=== PATIENT | male | born 1960 | race Caucasian/White ===

== ENCOUNTER 2023-11-17 21:03 | Emergency (ER) | payer BC, SELFPAY ==
--- NOTE | ~2023-11-17 | CT_ITS ---
EXAMINATION: CT abdomen pelvis w con DATE: 11/17/2023 23:07 INDICATION: epigastric abd pain, nausea TECHNIQUE: Computed tomography (CT) of the abdomen and pelvis was performed with 100 mL Omnipaque-350 intravenous contrast. Automated exposure control and iterative reconstruction technique were employe d. The dose-length product was 593.68 mGy-cm. COMPARISON: None. FINDINGS: Lower thorax: 6 mm right lower lobe pulmonary nodule. Liver: Mild hepatomegaly. Biliary/Gallbladder: The gallbladder is moderately contracted. No bile duct dilation. Pancreas: No mass or duct dilation. Spleen: Normal. Adrenals:No mass. Kidneys: No suspicious mass, obstructing stone, or hydronephrosis. Subcentimeter bilateral hypodensit ies, too small to characterize but most likely represent cysts. GI tract: Mild distal esophageal and gastric wall edema. No small or large bowel dilation. Normal patrick endix. Diverticulosis without diverticulitis. Mesentery/Peritoneum: No ascites, mass, or free air. Retroperitoneum: No mass. Atherosclerotic abdominal aortic and/or arterial calcifications. Pelvis: Pelvic organs are within normal limits. Soft Tissues: Soft tissues and body wall unremarkable. Bones: No acute osseous finding. IMPRESSION: 6 mm right lower lobe pulmonary nodule, requires no additional evaluation unless the patient is at hi gh risk, in which case consider an optional follow-up low-dose noncontrast CT of the chest in 12 toya hs. Mild esophagitis/gastritis. Otherwise, no acute abdominopelvic process detected. Reviewed, dictated and finalized at location K. IMPRESSION: 6 mm right lower lobe pulmonary nodule, requires no additional evaluation unles s the patient is at high risk, in which case consider an optional follow-up low -dose noncontrast CT of the chest in 12 months. Mild esophagitis/gastritis. Otherwise, no acute abdominopelvic process detected.
[2023-11-17 21:20] VITALS: BP 180/101; PULSE 74; RESP 16; TEMP 36.4; O2SAT 98
--- NOTE | 2023-11-17 22:24 | ECG_ITS ---
Test Date: 2023-11-17 22:37:33 Measurements Intervals [place] Rate: 68 P: 54 OR: 165 QRS: 33 QRSD: 106 T: 53 QT: 421 QTc: 451 Interpretive Statements SINUS RHYTHM No previous ECG available for comparison Electronically Signed On 11-18-2023 14:37:34 CDT by Rohit Porter M.D.
[2023-11-17 22:39] LABS: Basophils Absolute Auto 0.1 K/mm3 (0.0-0.1); Eosinophils Absolute Auto 0.2 K/mm3 (0-0.3); Eosinophils Percent Auto 2.8 % (0-4.4); Hematocrit 46.5 % (42.0-52.0); Hemoglobin 15.8 g/dL (14.0-18.0); Immature Granulocyte Absolute 0.02 K/mm3 (0.00-0.031); Immature Granulocyte Percent A 0.3 % (0-0.5); Lymphocytes Absolute Auto 1.91 K/mm3 (0.9-3.2); Lymphocytes Percent Auto 26.5 % (18.3-44.2); Mean Corpuscular Hemoglobin 29.6 pg (26-34); Mean Corpuscular Volume 87.2 fl (80-100); Mean Platelet Volume 10.2 fl (7.4-10.4); Monocytes Absolute Auto 0.8 K/mm3 (0.1-0.6); Monocytes Percent Auto 10.4 % (2.6-8.5); Neutrophils Absolute Auto 4.3 K/mm3 (1.3-6.7); Platelet Count Result 229 k/mm3 (150-375); Red Blood Count 5.33 M/mm3 (4.6-6.20); Red Cell Distribution Width 12.4 % (11.5-14.5); White Blood Count 7.2 K/mm3 (4.5-10.0)
--- NOTE | 2023-11-17 22:44 | ED.ABDPAIN ---
HPI - Abdominal Pain General Chief Complaint: Abdominal Pain Stated Complaint: abd pain Time Seen by Provider: 11/17/23 22:24 Source: patient Mode of arrival: ambulatory Limitations: no limitations History of Present Illness HPI narrative: This is a 63-year-old male that presents to the emergency department for epigastric abdominal pain. Ongoing over the last 24 hours. Reports that woke him up around 2:00 a.m.. He took some Tums and Pepto-Bismol with some relief. Was able to go back to sleep. His pain worsened again and last night after eating a cheeseburger and chocolate shake. Denies fevers, vomiting or diarrhea. Related Data Allergies Allergy/AdvReac Type Severity Reaction Status Date / Time No Known Allergies Allergy Unverified 11/17/23 21:30 Review of Systems Review of Systems: CONSTITUTIONAL: Denies fever CARDIOVASCULAR: Denies chest pain RESPIRATORY: Denies dyspnea. GASTROINTESTINAL: Reports abdominal pain, nausea. Denies vomiting, or diarrhea. GENITOURINARY: Denies dysuria All systems reviewed & are unremarkable except as noted in HPI and below PMFSH Past Medical History Medical History (Updated 11/18/23 @ 00:16 by Kaur Grullon PA-C) History of hyperlipidemia History of hypertension Social History Social History (Updated 11/17/23 @ 23:07 by Kaur Grullon PA-C) Alcohol intake: current Exam Narrative: GENERAL: Well-appearing, well-nourished, and in no acute distress. HEAD: Normocephalic, atraumatic. EYES: EOMI. CHEST: Clear to auscultation. No respiratory distress. No wheezes rales or rhonchi HEART: Regular rate and rhythm. No murmur heard. Normal peripheral pulses. ABDOMEN: Soft, nondistended, normal active bowel sounds. Tender to palpation in the epigastrium, without guarding EXTREMITIES: Normal range of motion. No edema. SKIN: Warm, dry, no rash. NEURO: No focal deficits. Alert and oriented x3. PSYCH: Normal mood and affect Course Course Emergency Course: Patient updated on workup. Resting comfortably Vital Signs Vital signs: Vital Signs Temperature 97.5 F L 11/17/23 21:20 Pulse Rate 74 11/17/23 21:20 Respiratory Rate 16 11/17/23 21:20 Blood Pressure 180/101 H 11/17/23 21:20 Pulse Oximetry 98 11/17/23 21:20 Oxygen Delivery Room Air 11/17/23 21:20 Temperature 97.5 F L 11/17/23 21:20 Pulse Rate 67 11/17/23 23:41 Respiratory Rate 18 11/17/23 23:41 Blood Pressure 166/93 H 11/17/23 23:41 Pulse Oximetry 97 11/17/23 23:41 Oxygen Delivery Room Air 11/17/23 21:20 MDM - Abdominal Pain MDM Narrative Medical decision making narrative: patient presents to the emergency department for epigastric abdominal discomfort. He is afebrile and nontoxic appearing. Hypertensive upon arrival, this improved without intervention. Cbc without leukocytosis. Metabolic panel without concerning findings. Lipase is normal. Urine without evidence of infection. CT abdomen and pelvis shows esophagitis/ gastritis. Otherwise no acute findings. Also shows a lung nodule. Patient updated on workup. Resting comfortably. Will be started on Protonix. He is to follow up with primary provider. He was given warnings to return to the ER Differential Diagnosis Differential diagnosis: Likely pancreatitis and other (GERD, biliary colic, esophagitis, gastritis) Lab Data Attestation: I reviewed the patient's lab results. 11/17/23 22:35 11/17/23 22:35 Labs: Lab Results 11/17/23 11/17/23 Range/Units 22:35 23:48 WBC 7.2 (4.5-10.0) K/mm3 RBC 5.33 (4.6-6.20) M/mm3 Hgb 15.8 (14.0-18.0) g/dL Hct 46.5 (42.0-52.0) % MCV 87.2 (80-100) fl MCH 29.6 (26-34) pg MCHC 34.0 (32-36) g/dl RDW 12.4 (11.5-14.5) % Plt Count 229 (150-375) k/mm3 MPV 10.2 (7.4-10.4) fl Immature Gran % (Auto) 0.3 (0-0.5) % Neut % (Auto) 59.0 (45.5-73.1) % Lymph % (Auto) 26.5 (18.3-44.2) % [place] % (Auto) 10.4 H
[2023-11-17 22:50] LABS: Alanine Aminotransferase 35 U/L (6-50); Albumin Level 4.4 g/dL (3.5-5.1); Alkaline Phosphatase 95 U/L (38-126); Anion Gap 12 mmol/L (4-12); Aspartate Amino Transferase 27 U/L (17-59); Bilirubin,Total 0.6 mg/dL (0.2-1.3); Blood Urea Nitrogen 18 mg/dL (9-20); Calcium 9.2 mg/dL (8.4-10.2); Carbon Dioxide 21 mmol/L (22-30); Chloride 105 mmol/L (98-107); Estimated CRCL calculation 83 ml/min; Estimated Glomerular Filt Rate > 60; Glucose 126 mg/dL (65-110); Lipase 93 U/L (23-300); Sodium 138 mmol/L (137-145)
--- NOTE | 2023-11-17 23:05 | PC.NURSE ---
care and report given to MIGUEL Ramires. all questions answered.
[2023-11-17 23:41] VITALS: BP 166/93; PULSE 67; RESP 18; O2SAT 97
[2023-11-17] MEDS: ONDANSETRON INJ 4 MG/2 ML VIAL IV PUSH (23:41)
[2023-11-17] MEDS: PANTOPRAZOLE SODIUM IV 40 MG VIAL IV PUSH (23:41)
[2023-11-17 23:54] LABS: Appearance Urine Clear (Clear); Bilirubin Urine Negative (Negative); Blood Urine Negative (Negative); Color Urine Yellow (Yellow); Glucose Urine UA Trace mg/dL (Negative); Ketones Urine Negative (Negative); Leukocyte Esterase Ur Negative LEU/UL (Negative); Nitrate Urine Negative (Negative); Protein Urine Negative (Negative); Urobilinogen Urine 0.2 mg/dL (<2.0)
[2023-11-17 23:56] LABS: Add Urine Microscopic? NO; Specific Grav Ur 1.047 (1.001-1.035)
== END 2023-11-18 00:35 | disposition home or self-care (01) ==
PROVIDERS: Emergency Provider Physician Assistant
DX: K20.90 Esophagitis, unspecified without bleeding (principal); R91.1 Solitary pulmonary nodule; E78.5 Hyperlipidemia, unspecified; I10 Essential (primary) hypertension
CPT/HCPCS: 36415; 74177; 80053; 81003; 83690; 85025; 93005; 96374; 96375; 99284; C9113; J2405; Q9967